=== PATIENT | male | born 1950 | race Caucasian/White ===

== ENCOUNTER 2020-12-13 17:21 | Emergency (ER) | payer MEDICARE, OTHER ==
[~2020-12-13] VITALS: Ht 175.3 cm; Wt 90.0 kg
--- NOTE | 2020-12-13 18:05 | PHYS DOC ---
Past History Past Medical History: Lung Disease Additional Past Medical Histor: lung transplant 2020 Alcohol Use: None General Adult EDM: Chief Complaint: LOWEREXTREMITY INJURY HPI: HPI: Patient is a 69-year-old male presents with hematoma to his left meza. Patient states he was trying to open up his front door and was moving too quickly, hit his left leg on the corner of a table. Patient is reporting swelling and pain to lower left leg. Patient denies taking medication prior to arrival. Patient is able to ambulate on his own. Review of Systems: Review of Systems: Constitutional: Denies fever or chills Eyes: Denies change in visual acuity HENT: Denies nasal congestion or sore throat Respiratory: Denies cough or shortness of breath Cardiovascular: Denies chest pain or edema GI: Denies abdominal pain, nausea, vomiting, bloody stools or diarrhea : Denies dysuria Musculoskeletal: Denies back pain or joint pain Integument: Reports bruising and pain to left lower leg Neurologic: Denies headache, focal weakness or sensory changes Endocrine: Denies polyuria or polydipsia Lymphatic: Denies swollen glands Psychiatric: Denies depression or anxiety Current Medications: Current Meds: Current Medications Medications (Trade) Dose Ordered Sig/Loretta Start Time Stop Time Status Last Admin Dose Admin Oxycodone/ Acetaminophen (Percocet 5/325) 1 tab 1X ONCE 12/13/20 18:00 12/13/20 18:01 UNV Physical Exam: PE: Constitutional: Well developed, well nourished, no acute distress, non-toxic appearance. [] HENT: Normocephalic, atraumatic, bilateral external ears normal, oropharynx moist, no oral exudates, nose normal. [] Eyes: PERRLA, EOMI, conjunctiva normal, no discharge. [] Neck: Normal range of motion, no tenderness, supple, no stridor. [] Cardiovascular:Heart rate regular rhythm, no murmur [] Lungs & Thorax: Bilateral breath sounds clear to auscultation [] Abdomen: Bowel sounds normal, soft, no tenderness, no masses, no pulsatile masses. [] Skin: Warm, dry, hematoma left lower leg Back: No tenderness, no CVA tenderness. [] Extremities: Left lower leg tenderness, no cyanosis, ROM intact Neurologic: Alert and oriented X 3, normal motor function, normal sensory function, no focal deficits noted. [] Psychologic: Affect normal, judgement normal, mood normal. [] Current Patient Data: Vital Signs: Vital Signs Date Time Temp Pulse Resp B/P (MAP) Pulse Ox O2 Delivery O2 Flow Rate FiO2 12/13/20 17:31 98.6 84 15 167/113 (131) 97 Room Air EKG: EKG: [] Radiology/Procedures: Radiology/Procedures: []XR LT TIBIA + FIBULA DATE: 12/13/2020 5:55 PM INDICATION: Pain, hit left on table COMPARISON: None. FINDINGS: Bones: There is no evidence of acute fracture. No joint dislocation is noted. Plantar calcaneal enthesophyte. Miscellaneous: Atherosclerotic vascular calcification. IMPRESSION: No evidence of acute fracture. Electronically signed by: Cyrus Angel MD (12/13/2020 6:57 PM) [facility] Heart Score: C/O Chest Pain: No Risk Factors: Risk Factors: DM, Current or recent (<one month) smoker, HTN, HLP, family history of CAD, obesity. Risk Scores: Score 0 - 3: 2.5% MACE over next 6 weeks - Discharge Home Score 4 - 6: 20.3% MACE over next 6 weeks - Admit for Clinical Observation Score 7 - 10: 72.7% MACE over next 6 weeks - Early Invasive Strategies Course & Med Decision Making: Course & Med Decision Making Pertinent Labs and Imaging studies reviewed. (See chart for details) [] 69-year-old male presents with injury to his left meza. Patient ran into a table and hit his lower left leg. Patient was able to ambulate on his own. Denies being on blood thinners patient has a hematoma to his left, lower leg with tenderness. Ice applied to injury. Patient given oxycodone for pain and x-ray of the left, tib-fib ordered to rule out fracture. Tib-fib x-ray was negative for fracture. Observed hematoma for over an hour. Swelling did not increase. Educated patient on home care. Rice instructions given. Wrapped the bruised area with an Piyush wrap to help decrease swelling. Instructed patient to take Tylenol and ibuprofen at home for discomfort. Patient given strict return precautions such as signs of infection, increased pain, increasing swelling, fever. Patient states that he understands and is okay with discharge plan. Patient is hemodynamically stable and able to ambulate out of the emergency room on his own. Dragon Disclaimer: Dragnarinder Disclaimer: This electronic medical record was generated, in whole or in part, using a voice recognition dictation system. Departure Departure: Impression: Primary Impression: Hematoma of left lower leg Disposition: HOME / SELF CARE / HOMELESS Condition: STABLE Referrals: DAE CARRILLO MD (PCP) Patient Instructions: Hematoma, [id number] Additional Instructions: You were seen in the emergency room after hitting your left meza on a table. The x-ray was negative for fracture. Is important to rest, use ice to the area for 10 to 20 minutes at a time for the next 48 hours to reduce swelling. Elevate your leg on a pillow when you are icing it or sitting or lying down for the next 48 hours. This will also help with reducing swelling. We are providing you with an Piyush wrap to wrap around the bruised area to decrease swelling as well. Make sure when you reapply that it is not to tight around her leg. You can take ibuprofen and Tylenol at home for discomfort. If you have any signs of infection such as an increase in pain, swelling, warmth or redness, pus draining from the area, a fever you will need to return to the emergency room or call your PCP. EMERGENCY DEPARTMENT GENERAL DISCHARGE INSTRUCTIONS Thank you for coming to [facility] (ED) today and trusting us with you care. We trust that you had a positivie experience in our Emergency Department. If you wish to speak to the department management, you may call the director at [phone]. YOUR FOLLOW UP INSTRUCTIONS ARE FOLLOWS: 1. Do you have a private Doctor? If you do not have a private doctor, please ask for a resource list of physicians or clinics that may be able to assist you with follow up care. 2. The Emergency Physician has interpreted your x-rays. The X-Ray specialist will also review them. If there is a change in the findings, you will be notified in 48 hours when at all possible. 3. A lab test or culture has been done, your results will be reviewed and you will be notified if you need a change in treatment. ADDITIONAL INSTRUCTIONS AND INFORMATION: 1. Your care today has been supervised by a physician who is specially trained in emergency care. Many problems require more than one evaluation for a complete diagnosis and treatment. We recommend that you schedule your follow up appointment as recommended to ensure complete treatment of you illness or injury. If you are unable to obtain follow up care and continue to have a problem, or if your condition worsens, we recommend that you return to the ED. 2. We are not able to safely determine your condition over the phone nor are we able to give sound medical advice over the phone. For these safety reasons, if you call for medical advice we will ask you to come to the ED for further evaluation. 3. If you have any questions regarding these discharge instructions please call the ED at [phone]. SAFETY INFORMATION: In the interest of safety, wellness, and injury prevention; we encourage you to wear your sealbelt, if you smoke; quite smoking, and we encourage family to use a protective helmet for bicycling and other sporting events that present an increased risk for head injury. IF YOUR SYMPTOMS WORSEN OR NEW SYMPTOMS DEVELOP, OR YOU HAVE CONCERNS ABOUT YOUR CONDITION; OR IF YOUR CONDITION WORSENS WHILE YOU ARE WAITING FOR YOUR FOLLOW UP APPOINTMENT; EITHER CONTACT YOUR PRIMARY CARE DOCTOR, THE PHYSICIAN WHOSE NAME AND NUMBER YOU WERE GIVEN, OR RETURN TO THE ED IMMEDIATELY. PATEL PAZ APRN Dec 13, 2020 18:05
[2020-12-13] MEDS: oxyCODONE/APAP 5/325 1 TAB TABLET PO ONE (18:42)
--- NOTE | 2020-12-13 18:59 | RAD ---
XR LT TIBIA + FIBULA DATE: 12/13/2020 5:55 PM INDICATION: Pain, hit left on table COMPARISON: None. FINDINGS: Bones: There is no evidence of acute fracture. No joint dislocation is noted. Plantar calcaneal enth esophyte. Miscellaneous: Atherosclerotic vascular calcification. IMPRESSION: No evidence of acute fracture. Electronically signed by: Cyrus Angel MD (12/13/2020 6:57 PM) [facility]
[2020-12-13 19:50] VITALS: BP 163/84
== END 2020-12-13 19:50 | disposition home or self-care (01) ==
LOC: ER 17:21
DX: S80.12XA Contusion of left lower leg, initial encounter (principal); W22.8XXA Striking against or struck by other objects, initial encounter; Y93.89 Activity, other specified; Y92.89 Other specified places as the place of occurrence of the external cause; Y99.8 Other external cause status
CPT/HCPCS: 73590; 99283-25

== ENCOUNTER → 2020-12-28 | Outpatient (CLI) | payer MEDICARE, OTHER ==
[2020-12-13 19:50] VITALS: BP 163/84
--- NOTE | 2020-12-28 13:04 | RAD ---
XR EXAM OF ANKLE_LEFT 3V DATE: 12/28/2020 11:00 AM INDICATION: INJURY, BRUISING AND SWELLING COMPARISON: Radiograph 12/13/2020 FINDINGS: Bones: There is no evidence of acute fracture or dislocation. Plantar calcaneal enthesophyte. Joints: The ankle mortise is congruent. No widening of the distal tibiofibular syndesmosis. Miscellaneous: Atherosclerotic vascular calcifications. Soft tissue swelling about the ankle. IMPRESSION: No acute fracture. Electronically signed by: Cyrus Angel MD (12/28/2020 1:02 PM) [id number]
== END ==
LOC: RAD 10:52
PROVIDERS: ATTEND Orthopaedic Surgery
DX: M77.32 Calcaneal spur, left foot (principal); M79.89 Other specified soft tissue disorders
CPT/HCPCS: 73610